=== PATIENT | male | born 1965 | race Caucasian/White ===

== ENCOUNTER → 2023-06-02 | Day surgery (SDC) | payer BC, MEDICAID ==
[~2023-06-02] MED LIST: Lactated Ringers 1,000 ML IV SCH; Midazolam 1 MG/ML 2 ML SDV ONE; Propofol 200 MG/20 ML SDV ONE; fentaNYL 50 MCG/ML SDV ONE
[2023-06-02] MEDS: Lactated Ringers 1,000 ML IV SCH (07:46)
== END ==
LOC: JP.SDS 06:56
PROVIDERS: ATTEND Family Medicine
DX: Z12.11 Encounter for screening for malignant neoplasm of colon (principal); E78.5 Hyperlipidemia, unspecified; I10 Essential (primary) hypertension; Z80.0 Family history of malignant neoplasm of digestive organs; Z98.890 Other specified postprocedural states; E66.9 Obesity, unspecified
CPT/HCPCS: J2250; J2704; J3010; J7120